=== PATIENT | female | born 1970 | race African-American/Black ===

== ENCOUNTER 2018-08-23 21:55 | Emergency (ER) | payer SELFPAY ==
[2018-08-23] MEDS ORDERED: Ketorolac Tromethamine 60 MG/2 ML VIAL ONE (22:18)
== END 2018-08-23 22:33 | disposition home or self-care (01) ==
LOC: SCSER 21:55
DX: M25.522 Pain in left elbow (principal); I10 Essential (primary) hypertension
CPT/HCPCS: 96372; J1885